=== PATIENT | female | born 1970 | race Caucasian/White ===

== ENCOUNTER 2022-02-25 07:55 | Outpatient (CLI) | payer BC, SELFPAY ==
[2022-02-25 11:32] LABS: Albumin* 4.4 g/dL (3.3-5.0)
[2022-02-25 11:33] LABS: Chloride* 102 mmol/L (96-114); Potassium* 4.3 mmol/L (3.6-5.1); Sodium* 140 mmol/L (135-149)
[2022-02-25 11:35] LABS: Aspartate Amino Transferase* 35 U/L (12-35); Bilirubin Total* 0.8 mg/dL (0.1-1.5); Carbon Dioxide* 31 mmol/L (20-32); Cholesterol* 160 mg/dL (90-199); Creatinine* 0.9 mg/dL (0.5-1.5); Estimated Glomerular Filt Rate 78 ml/min; Total Protein* 7.1 g/dL (6.0-8.3)
[2022-02-25 11:36] LABS: Alanine Aminotransferase* 19 U/L (4-35); Alkaline Phosphatase* 71 U/L (40-150); Blood Urea Nitrogen* 18 mg/dL (7-30); Calcium* 9.6 mg/dL (8.4-10.6); Glucose* 107 mg/dL (60-115); HDL Cholesterol* 82 mg/dL (>=50); LDL Cholesterol Calculated 61 mg/dL (<100); Triglycerides* 87 mg/dL (40-149)
[2022-02-25 12:01] LABS: Vitamin D 25 Hydroxy* 60 ng/mL (30-80)
[2022-02-25 12:19] LABS: Ferritin* 14.7 ng/mL (11.1-264.0)
[2022-02-25 12:24] LABS: Vitamin B12* 625 pg/mL (243-894)
[2022-02-25 12:54] LABS: Free T4 Free Thyroxine* 1.17 ng/dL (0.70-1.85)
== END 2022-02-25 07:56 | disposition home or self-care (01) ==
PROVIDERS: PCP Family Medicine; Visit Provider Family Medicine
DX: Z01.419 Encounter for gynecological examination (general) (routine) without abnormal findings (principal); R53.83 Other fatigue; Z86.2 Personal history of diseases of the blood and blood-forming organs and certain disorders involving the immune mechanism; Z13.6 Encounter for screening for cardiovascular disorders
CPT/HCPCS: 80053; 80061; 82306; 82607; 82728; 84439; 84443

== ENCOUNTER 2022-05-21 08:10 | Outpatient (CLI) | payer BC, SELFPAY ==
--- NOTE | 2022-05-21 08:15 | CRLHL7_ITS ---
For Patients: As a result of the Century Cures Act, medical imaging exams and procedure reports are released immediately into your electronic medical record. You may view this report before your referring provider. If you have questions, please contact your health care provider. BILATERAL SCREENING MAMMOGRAM WITH COMPUTER-AIDED DETECTION TECHNIQUE: CC and MLO views were obtained. These mammographic images have been obtained using full-field digital technique. These mammographic images were interpreted with the benefit of computer-aided detection. COMPARISON FILM: 05/29/16. FINDINGS: The breasts are heterogeneously dense, which may obscure small masses IMPRESSION: There is no radiographic evidence for malignancy. ASSESSMENT: BI-RADS Category 1: Negative RECOMMENDATION: Routine screening mammogram in 1 year. A lay language report of this examination will be provided to the patient. Romain Bowden M.D. Diagnostic Radiologist [email or web address] CHUY/Dictated by: Romain Bowden MD @ 05/21/2022 12:50:00 PM (Electronically Signed)
== END 2022-05-21 08:11 | disposition home or self-care (01) ==
LOC: MAMMO 08:11
PROVIDERS: PCP Family Medicine; Visit Provider Family Medicine
DX: Z12.31 Encounter for screening mammogram for malignant neoplasm of breast (principal); R92.2 Inconclusive mammogram
CPT/HCPCS: 77063; 77067

== ENCOUNTER 2023-02-10 07:20 | Day surgery (SDC) | payer BC, SELFPAY ==
[2023-02-10 07:31] VITALS: BMI 23.1
[2023-02-10 07:41] LABS: Ur HCG Qualitative* Negative (Negative)
[2023-02-10 07:42] VITALS: BP 132/81; PULSE 60; RESP 20; TEMP 36.8; O2SAT 100
[2023-02-10] MEDS: LACTATED RINGERS 1000 ML 1,000 ML 100 ML IV (07:54)
[2023-02-10] MEDS: SODIUM CHLORIDE 0.9 % (FLUSH) 10 ML SYRINGE IVF (07:55)
--- NOTE | 2023-02-10 08:16 | W.ANESCHARGE ---
Anesthesia Charges Start Date/Time Anesthesia Start Date: 02/10/23 Anesthesia Start Time: 08:38 Stop Date/Time Anesthesia Stop Date: 02/10/23 Anesthesia Stop Time: 09:26
--- NOTE | 2023-02-10 08:45 | W.PM.GYNPROC ---
Procedure Note Date of procedure: 02/10/23 Pre-op diagnosis: Postmenopausal bleeding, thickened endometrial lining, submucosal fibroid Post-op diagnosis: same Procedure: Hysteroscopy, D&C the TruClear morcellator. Anesthesia: MAC and local Complications: None. Surgeon: Divya Gurrola MD. Estimated blood loss (mL): 10 Pathology: specimen obtained, sent to pathology Condition: stable Disposition: PACU Findings: Largely atrophic appearing endometrium. Some polypoid tissue anteriorly near the internal cervical os. 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 No gross evidence of submucosal fibroids. Procedure Description: After obtaining informed consent, the patient was taken to the operating room where she received monitored anesthesia care. She was prepared and draped in the normal sterile fashion, in the dorsal lithotomy position. An open-sided bivalve speculum was introduced into the vagina and the cervix visualized. The anterior lip of the cervix was grasped with a single-tooth tenaculum for traction. A paracervical block was then administered using a total of 20 mL of a 50/50 mixture of 0.25% Marcaine and 1% lidocaine plain. The uterus was gently sounded. Sound length was 8 cm. The cervix was gently dilated to a # 6 Hegar dilator. A hysteroscope was then advanced under direct visualization through the cervix into the uterine cavity. Sterile normal saline was used as distending medium. The uterine cavity was carefully inspected with the findings noted above. Pictures were taken for documentation purposes. The TruClear morcellator was inserted through the operating channel in the hysteroscope. The morcellator was used to remove the polypoid endometrial tissue anteriorly and then to do a generalized sampling of the endometrium throughout the cavity. As the tissue was removed, the apparent septum largely disappeared. The hysteroscope was then removed. The endometrial lining was then sharply curetted. A gritty feel was felt throughout and no further tissue recovered. The tenaculum was removed. There was little bleeding from the tenaculum site, which was controlled with direct pressure sponge stick. All instruments were then removed. The patient tolerated the procedure well. Sponge, lap, needle, and instrument counts reported as correct x2. The patient was taken to the recovery room awake in a stable condition.
--- NOTE | 2023-02-10 08:54 | W.ANESCHARGE ---
Anesthesia Charges Start Date/Time Anesthesia Start Date: 02/10/23 Anesthesia Start Time: 08:38 Stop Date/Time Anesthesia Stop Date: 02/10/23 Anesthesia Stop Time: 09:26
[2023-02-10] MEDS: BUPIVACAINE 0.25% 30 ML 10 ML INJECTION (08:59)
[2023-02-10] MEDS: LIDOCAINE 1% MDV 10 ML INJECTION (08:59)
[2023-02-10] MEDS: KETOROLAC 30 MG/ML inj IVP (09:02)
--- NOTE | 2023-02-10 09:15 | SUR.OPER ---
deficit of 190ml
[2023-02-10 09:27] VITALS: BP 85/64; PULSE 75; RESP 16; TEMP 36.2; O2SAT 95
[2023-02-10 09:45] VITALS: BP 91/58; PULSE 53; RESP 16; O2SAT 96
[2023-02-10 10:00] VITALS: BP 91/58; PULSE 55; RESP 16; TEMP 36.4; O2SAT 98
[2023-02-10 10:16] VITALS: BP 100/65; PULSE 57; RESP 16; O2SAT 100
== END 2023-02-10 10:36 | disposition home or self-care (01) ==
PROVIDERS: PCP Family Medicine; Visit Provider Obstetrics & Gynecology
PROC: 0UDB8ZZ Extraction of Endometrium, Via Natural or Artificial Opening Endoscopic (ICD-10-PCS; CPT 58558; principal; 2023-02-10 08:15)
DX: N95.0 Postmenopausal bleeding (principal); D25.0 Submucous leiomyoma of uterus; R93.89 Abnormal findings on diagnostic imaging of other specified body structures
CPT/HCPCS: 58563; 81025; 88305; 952; J0665; J1100; J1885; J2405; J2704; J3010; J7120